=== PATIENT | female | born 1965 | race Caucasian/White ===

== ENCOUNTER 2023-03-02 07:40 | Outpatient (CLI) | payer OTHER | END 2023-03-02 07:41 | disposition home or self-care (01) | LOC: BICMAMMO 07:40 | PROVIDERS: ATTEND Nurse Practitioner Family | DX: N63.20 Unspecified lump in the left breast, unspecified quadrant (principal) ==

== ENCOUNTER 2024-03-21 08:25 | Outpatient (CLI) | payer OTHER | END 2024-03-21 08:26 | disposition home or self-care (01) | LOC: BICMAMMO 08:25 | PROVIDERS: ATTEND Family Medicine | DX: Z12.31 Encounter for screening mammogram for malignant neoplasm of breast (principal); Z98.82 Breast implant status | CPT/HCPCS: 77067 ==